=== PATIENT | male | born 2000 | race Caucasian/White ===

== ENCOUNTER 2020-05-24 09:29 | Outpatient (REF) | payer OTHER, SELFPAY ==
[2020-05-24 11:30] LABS: Alanine Aminotransferase 28 U/L (0-40); Albumin Level 4.3 g/dL (3.5-5.0); Alkaline Phosphatase 99 U/L (39-117); Anion Gap 15 (12-20); Aspartate Amino Transferase 23 U/L (5-37); Bilirubin Total 0.6 mg/dL (0.0-1.0); Blood Urea Nitrogen 11 mg/dL (9-16); Calcium 9.4 mg/dL (8.4-10.2); Carbon Dioxide 24 mmol/L (22-29); Chloride 107 mmol/L (96-108); Cholesterol 199 mg/dL; Estimated Glomerular Filt Rate > 60; Glucose Random 97 mg/dL (60-115); HDL Cholesterol 39 mg/dL; LDL Cholesterol Calculated 114 mg/dl; Potassium 4.3 mmol/L (3.3-5.1); Sodium 142 mmol/L (135-145); Total Protein 7.4 g/dL (6.5-8.0); Triglycerides 232 mg/dL
[2020-05-24 11:57] LABS: Thyroid Stimulating Hormone 3.79 uIU/mL (0.32-4.0)
== END 2020-05-24 09:30 | disposition home or self-care (01) ==
LOC: HO.LAB 09:29
PROVIDERS: PCP Internal Medicine; Visit Provider Internal Medicine
DX: E66.01 Morbid (severe) obesity due to excess calories (principal); Z68.42 Body mass index [BMI] 45.0-49.9, adult; E78.1 Pure hyperglyceridemia
CPT/HCPCS: 36415; 80053; 80061; 84443

== ENCOUNTER 2021-03-06 07:47 | Outpatient (REF) | payer OTHER, SELFPAY ==
[2021-03-06 08:02] LABS: MANUAL DIFF FLAG NO
[2021-03-06 08:42] LABS: Basophils Percent Auto 0.5 % (0-2); Eosinophils Absolute Auto 0.2 X10*3/uL (0.0-0.4); Eosinophils Percent Auto 2.4 % (0-4); Hematocrit 45.5 % (42.0-52.0); Hemoglobin 14.2 g/dl (14.0-18.0); Imm Gran Abs Auto 0.09 X10*3/uL (0.00-0.03); Imm Gran Pct Auto 1.1 % (0.0-0.4); Mean Corpuscular HGB Conc 31.2 g/dl (31.0-36.0); Mean Corpuscular Volume 86.7 fL (80.0-98.0); Mean Platelet Volume 9.7 fL (9.4-12.4); Monocytes Absolute Auto 0.8 X10*3/uL (0.1-1.2); Monocytes Percent Auto 9.8 % (2-11); Neutrophils Absolute Auto 5.1 x10*3/uL (2.0-8.3); Neutrophils Percent Auto 62.2 % (45-73); Platelet Count 409 X10*3/uL (160-400); Red Blood Count 5.25 X10*6/uL (4.60-5.80); Red Cell Distribution Width 13.9 % (11.0-16.0); White Blood Count 8.3 X10*3/uL (4.8-10.8)
[2021-03-06 08:57] LABS: Estimated Average Glucose 111 mg/dL; Hemoglobin A1c % 5.5 %
[2021-03-06 09:08] LABS: Alanine Aminotransferase 28 U/L (0-40); Albumin Level 4.4 g/dL (3.5-5.0); Alkaline Phosphatase 86 U/L (39-117); Anion Gap 12 (12-20); Aspartate Amino Transferase 17 U/L (5-37); Bilirubin Total 0.5 mg/dL (0.0-1.0); Blood Urea Nitrogen 13 mg/dL (9-16); Calcium 9.8 mg/dL (8.4-10.2); Carbon Dioxide 26 mmol/L (22-29); Chloride 107 mmol/L (96-108); Cholesterol 189 mg/dL; Estimated Glomerular Filt Rate > 60; Glucose Random 105 mg/dL (60-115); HDL Cholesterol 41 mg/dL; LDL Cholesterol Calculated 119 mg/dl; Potassium 4.9 mmol/L (3.3-5.1); Sodium 140 mmol/L (135-145); Total Protein 7.6 g/dL (6.5-8.0); Triglycerides 145 mg/dL
== END 2021-03-06 07:48 | disposition home or self-care (01) ==
LOC: HO.LAB 07:47
PROVIDERS: PCP Internal Medicine; Visit Provider Internal Medicine
DX: Z00.00 Encounter for general adult medical examination without abnormal findings (principal); E66.01 Morbid (severe) obesity due to excess calories; Z68.42 Body mass index [BMI] 45.0-49.9, adult; E78.1 Pure hyperglyceridemia
CPT/HCPCS: 36415; 80053; 80061; 83036; 85025

== ENCOUNTER 2023-07-14 20:00 | Emergency (ER) | payer OTHER, SELFPAY ==
[2023-07-14 20:08] VITALS: BP 127/76; PULSE 118; RESP 18; TEMP 37.8; O2SAT 97; BMI 59.1
[2023-07-14 20:43] LABS: IDNOW Serial# 6674DD1D; Strep A Nucleic Acid Negative (Negative)
[2023-07-14 21:13] LABS: Influenza A PCR NEGATIVE (Negative); Influenza B PCR NEGATIVE (Negative); Resp Syncy Virus RNA Qual PCR NEGATIVE (Negative); SARS COV2 PCR INHOUSE NEGATIVE (Negative)
[2023-07-14 22:14] VITALS: BP 112/84; PULSE 106; RESP 20; TEMP 37.3; O2SAT 97
== END 2023-07-15 01:26 | disposition left against medical advice (07) ==
PROVIDERS: Emergency Provider Emergency Medicine
DX: R53.81 Other malaise (principal); R51.9 Headache, unspecified; Z03.818 Encounter for observation for suspected exposure to other biological agents ruled out
CPT/HCPCS: 0241U; 87651; 99282; 99283

== ENCOUNTER 2024-11-16 06:50 | Emergency (ER) | payer OTHER, SELFPAY ==
--- NOTE | ~2024-11-16 | XR_ITS ---
EXAMINATION: XR FOOT, LEFT CLINICAL INFORMATION: fall with pain of mid foot COMPARISON: None available. TECHNIQUE: AP, lateral, and oblique views of the left foot. FINDINGS: No acute cortical disruption. No gross malalignment. No metallic or radiopaque foreign body. No subcutaneous emphysema. No lytic or blastic lesions. No joint effusion, anterior tibiotarsal bursa. No calcaneal spur. XR/XR foot LT min 3V IMPRESSION: No acute fracture or dislocation. Electronically signed by: Jarred Sheikh MD 11/16/2024 08:23 AM EDT
--- NOTE | ~2024-11-16 | XR_ITS ---
EXAMINATION: XR ANKLE 3 OR MORE VIEWS LEFT HISTORY: left ankle pain COMPARISON: There are no prior studies available for comparison. FINDINGS: Three views of the left ankle are submitted. Osseous mineralization is normal. There is no fracture or dislocation. The joint spaces are preserved. The soft tissues are unremarkable. XR/XR ankle LT min 3V IMPRESSION: Unremarkable examination of the left ankle. Electronically signed by: Marquez Arriaza MD 11/16/2024 08:07 AM EDT
[2024-11-16 07:00] VITALS: BP 141/89; PULSE 91; RESP 16; TEMP 36.2; O2SAT 98; BMI 35.9
--- OUTSIDE RECORDS SUMMARY | 2024-11-16 07:34 | XMS_ITS | Clinical Summary ---
[facility] [address] [place] [address] Care Team Providers Care Bundles Hanger Name Role Phone Unavailable Primary Care Provider Unavailabl e Social History Tobacco Use Types Packs/Day Years Used Date Smoking Tobacco: Never Assessed Sex and Gender Information Value Date Recorded Sex Assigned at Not on file Legal Sex Male 1:15 AM EST Gender Identity Not on file Sexual Orientation Not on file Plan of Treatment Health Maintenance Due Date Last Done Comments HPV Vaccines (1 - Male 3-dos e series) 2013 DTaP,Tdap,and Td Vaccines (1 - Tdap) 2017 Hepatitis B Vaccines (1 of 3 - 19+ 3-dose series) 2017 HIV Screening 10/26/2023 Hepatitis C Screening 10/26/2023 Social Influencers of Health Screening 10/26/2023 Depression Screening 03/02/2024 COVID-19 Vaccine ( - 2023-2 5 season) 2024 Influenza Vaccine (#1) 2024 HIB Vaccines Aged Out No longer eligi ble based on patient's age to complete this topic Hepatitis A Vaccines Aged Out No long er eligible based on patient's age to complete this topic IPV Vaccines Aged Out No longer eligi ble based on patient's age to complete this topic MMR Vaccines Aged Out No longer eligi ble based on patient's age to complete this topic Meningococcal ACWY Vaccine Aged Out N o longer eligible based on patient's age to complete this topic Meningococcal B Vaccine Aged Out No l onger eligible based on patient's age to complete this topic Pneumococcal Vaccine: Pediat rics (0 to 5 Years) and At-Risk Patients (6 to 49 Years) Aged Out No longer eligible b ased on patient's age to complete this topic RSV Immunization Patients Un dee 20 months Aged Out No longer eligible b ased on patient's age to complete this topic Varicella Vaccines Aged Out No longer eligible based on patient's age to complete this topic
--- NOTE | 2024-11-16 08:03 | ED_ITS ---
HPI - Extremity Injury (Lower) General Chief Complaint: Extremity Injury, Lower Stated Complaint: left ankle inj Time Seen by Provider: 11/16/24 07:27 Source: patient, RN notes reviewed and old records reviewed Mode of arrival: ambulatory Limitations: no limitations History of Present Illness ED Provider: SHANAE Hernandez HPI Narrative: 24-year-old male without significant medical history presents to the ED due to left ankle pain. Patient states he was walking down the stairs yesterday when he got a cramp in the back of his left calf causing him to fall down the stairs invert his ankle, and land on the left ankle underneath him with full body weight. Patient states he felt immediate pain in the dorsal, and lateral aspect of his foot and ankle, with some swelling. Patient denies taking any medications this morning for pain relief. Related Data Allergies Allergy/AdvReac Type Severity Reaction Status Date / Time No Known Allergies (No Known Allergy Verified 11/16/24 07:01 Allergies*) Review of Systems Review of Systems: CONST: Negative for fever, body aches and chills. HENT: Negative for neck pain/stiffness, headache, congestion, sore throat, swelling. EYES: Negative for discharge/pain or vision changes. RESP: Negative for cough/hemoptysis and shortness of breath. CV: Negative chest pain, difficulty breathing, palpitations. ABD: Negative pain, nausea, vomiting. : Negative increase frequency, dysuria, blood in urine or stool. MUSC: Negative for muscle aches, edema. POS L ankle and dorsal mid foot pain SKIN: Negative rash, lesions/sores. NEURO: Negative headache, dizziness, weakness. Yes all other systems are reviewed and are negative [facility] Social History Social History (System 05/24/20 @ 14:12 by Paula Waters) Smoked in Last 30 Days: No Use of substances other than those prescribed or required for medical reasons: No Advance Directives: No Advance Directives Information Provided: Yes Physical Exam Vital Signs: Vital Signs: Last Vital Signs Temp 97.1 F 11/16/24 07:00 Pulse 91 11/16/24 07:00 Resp 16 11/16/24 07:00 BP 141/89 H 11/16/24 07:00 Pulse Ox 98 11/16/24 07:00 O2 Del Method Room Air 11/16/24 07:00 BMI result Body Mass Index 35.9 GENERAL APPEARANCE: ?AxOx4, generally well-appearing, no acute distress. HEENT: ?NC, AT. MMM. EOMI, clear conjunctiva, oropharynx clear. NECK: ?Supple without lymphadenopathy.? No stiffness or restricted ROM. HEART:? Normal rate and regular rhythm, normal S1/S2, no m/r/g LUNGS:? CTAB, moving air well. No crackles or wheezes are heard. EXTREMITIES: ?Without cyanosis, clubbing or edema. L ankle with mild edema, no ecchymosis, TTP of L lateral malleolus and mid foot region, ROM intact but has pain with flexion of the ankle NEUROLOGICAL: ?Grossly nonfocal. Alert and oriented, moving all 4 extremities. Skin: ?Warm and dry without any rash. Medications Administered Discontinued Medications Generic Name Dose Route Start Last Admin Trade Name Aubree PRN Reason Stop Dose Admin Acetaminophen 975 mg 11/16/24 08:09 11/16/24 08:17 Acetaminophen 325 Mg Tablet PO 11/16/24 08:10 975 mg ONCE ONE Administration Ketorolac Tromethamine 30 mg 11/16/24 08:09 11/16/24 08:18 Ketorolac Tromethamine 30 Mg/Ml Vial IM 11/16/24 08:10 30 mg ONCE ONE Administration Medical Decision Making Medical Decision Making MDM Narrative: 24-year-old without significant medical history with left ankle pain after falling down the stairs yesterday due to cramp in the left. Patient landed with the left ankle and foot underneath him with full body weight. Is now experiencing pain of the lateral ankle, and dorsal midfoot region. Patient needs support when ambulating due to pain of the left foot. Plan: XR L ankle, XR L foot Course 8:30- XR L ankle, XR L foot both negative for acute fracture or dislocation. Patient was medicated with 30 mg IM Toradol, 975 p.o. Tylenol. Patient counseled on ankle sprain, we will give Catrachito wrap for compression. I counseled patient on following up with his primary care doctor and with Orthopedics to ensure resolution of his symptoms. Patient is in agreement with the plan. Differential Diagnosis Differential Diagnoses: The differential diagnosis associated with the presentation includes Ankle fracture Foot fracture Ankle sprain Ankle strain Admission/Observation Consideration of admission/observation: Escalation of care including admission/observation considered Independent Interpretation I performed an independent interpretation of an: Plain X-Ray Interpretation: XR L ankle FINDINGS: Three views of the left ankle are submitted. Osseous mineralization is normal. There is no fracture or dislocation. The joint spaces are preserved. The soft tissues are unremarkable. XR/XR ankle LT min 3V IMPRESSION: Unremarkable examination of the left ankle. Electronically signed by: Marquez Arriaza MD 11/16/2024 08:07 AM EDT RP Dictated By: Marquez Arriaza MD Signed By: <Electronically signed by Marquez Arriaza MD in OV> 11/16/24 0807 XR L foot FINDINGS: No acute cortical disruption. No gross malalignment. No metallic or radiopaque foreign body. No subcutaneous emphysema. No lytic or blastic lesions. No joint effusion, anterior tibiotarsal bursa. No calcaneal spur. XR/XR foot LT min 3V IMPRESSION: No acute fracture or dislocation. Electronically signed by: Jarred Sheikh MD 11/16/2024 08:23 AM EDT RP Radiology Impression Discussion of test interpretation with radiology: I have reviewed the radiologist's reading. External Record Review External record reviewed: Inpatient record, Office record and Outpatient record Discharge Plan Discharge Clinical Impression: Ankle sprain and strain Instructions: Ankle Sprain (DC) Additional Instructions: You were evaluated in the ED today due to left ankle and foot pain after falling down the stairs yesterday. The x-ray of your left ankle and foot were negative for fracture or dislocation. At this time I believe you have sprained your ankle. Treatment for this includes compression, rest, elevation, and icing the area. You were medicated with 30 mg intramuscular injection of Toradol which is a strong NSAID, and 975 mg of Tylenol for pain relief. To manage pain at home you can alternate 500 mg of Tylenol and 400 mg of ibuprofen every 6 hours. You were medicated in the department today you do not need to take any additional Tylenol or ibuprofen until 5:00 p.m. this evening. Please elevate and ice the affected area. I have provided a referral to Orthopedics for you to follow up with. Please call their office, they will not call you. Please return to the emergency department if you experience worsening pain of your ankle/foot, loss of sensation of your ankle/foot or any new/worsening/concerning symptoms. Referrals: [facility] [place] Orthopedic Surgeons [Provider Group] Stand Alone Forms: Work/School Release Print Language: [place]an
[2024-11-16 09:00] VITALS: BP 141/89; PULSE 91; RESP 16; TEMP 36.2; O2SAT 98
== END 2024-11-16 09:31 | disposition home or self-care (01) ==
PROVIDERS: Emergency Provider Emergency Medicine; PCP Internal Medicine
DX: S93.402A Sprain of unspecified ligament of left ankle, initial encounter (principal); M79.672 Pain in left foot; X50.1XXA Overexertion from prolonged static or awkward postures, initial encounter; Y93.9 Activity, unspecified; Y92.9 Unspecified place or not applicable; Y99.8 Other external cause status
CPT/HCPCS: 73610; 73630; 96372; 99284; J1885

== ENCOUNTER → 2024-11-16 07:41 | Outpatient (BNV) | payer OTHER, SELFPAY | PROVIDERS: Emergency Provider Emergency Medicine; PCP Internal Medicine; Visit Provider Radiology Diagnostic Radiology | DX: M25.572 Pain in left ankle and joints of left foot (principal); M79.672 Pain in left foot | CPT/HCPCS: 73610; 73630 ==